=== PATIENT | female | born 1960 | race Caucasian/White ===

== ENCOUNTER 2021-01-05 09:05 | Outpatient (REF) | payer OTHER, SELFPAY ==
--- NOTE | ~2021-01-05 | XR_ITS ---
EXAMINATION: XR KNEE, BILATERAL CLINICAL INFORMATION: Left knee pain. COMPARISON: 09/19/2014 TECHNIQUE: Standing AP views of both knees and lateral and sunrise views of the left knee. FINDINGS: AP standing views of both knees do not demonstrate any significant bony abnormality. Joint spaces are maintained. Lateral and sunrise views of the left knee demonstrate minimal spurring undersurface of the patella, however, there is also a region of diminished density about the patella in the region of the patellofemoral joint, and donor site for loose body cannot be ruled out. No definite bony loose body is appreciated. No significant left knee effusion is appreciated. XR/XR knee LT 2V IMPRESSION: No acute fracture or significant degenerative change about the left knee. Region of diminished density about the undersurface of the left patella which could possibly represent a donor site for loose body. No definite loose body is appreciated. No significant abnormality of the right knee on AP view. Joint space narrowing identified.
--- NOTE | ~2021-01-05 | XR_ITS ---
EXAMINATION: XR KNEE, BILATERAL CLINICAL INFORMATION: Left knee pain. COMPARISON: 09/19/2014 TECHNIQUE: Standing AP views of both knees and lateral and sunrise views of the left knee. FINDINGS: AP standing views of both knees do not demonstrate any significant bony abnormality. Joint spaces are maintained. Lateral and sunrise views of the left knee demonstrate minimal spurring undersurface of the patella, however, there is also a region of diminished density about the patella in the region of the patellofemoral joint, and donor site for loose body cannot be ruled out. No definite bony loose body is appreciated. No significant left knee effusion is appreciated. XR/XR knee standing BI IMPRESSION: No acute fracture or significant degenerative change about the left knee. Region of diminished density about the undersurface of the left patella which could possibly represent a donor site for loose body. No definite loose body is appreciated. No significant abnormality of the right knee on AP view. Joint space narrowing identified.
== END 2021-01-05 09:06 | disposition home or self-care (01) ==
LOC: HO.HOSX 09:05
PROVIDERS: Visit Provider Orthopaedic Surgery
DX: S83.242A Other tear of medial meniscus, current injury, left knee, initial encounter (principal)
CPT/HCPCS: 73560; 73565

== ENCOUNTER 2021-01-12 19:26 | Outpatient (REF) | payer OTHER, SELFPAY ==
--- NOTE | ~2021-01-12 | MR_ITS ---
EXAMINATION: MR KNEE WITHOUT CONTRAST, LEFT CLINICAL INFORMATION: Medial knee pain for approximately one year. COMPARISON: Left knee radiographs dated January 05, 2021. TECHNIQUE: MRI of the knee without contrast was performed using routine sequences on a high-field scanner. FINDINGS: MENISCI: Medial Meniscus: Obliquely oriented horizontal cleavage tear in the peripheral undersurface of the posterior body and posterior horn. Tearing in the posterior horn involves the and central third of the posterior horn. Lateral Meniscus: Intact LIGAMENTS: Cruciate: Intact Collateral: Intact EXTENSOR MECHANISM: Intact ARTICULAR CARTILAGE/BONE: Patellofemoral Compartment: Focal full-thickness cartilage loss in the median ridge articular cartilage (4:12), (2:6) measuring 0.3 x 0.3 cm (TV, CC) with underlying subchondral edema. Medial Compartment: Normal Lateral Compartment: Normal JOINT FLUID AND BURSAE: Small joint effusion. Small volume of fluid in the semimembranosus-medial gastrocnemius bursa. MR/MR knee LT wo con IMPRESSION: Left knee: 1. Obliquely oriented horizontal tear in the posterior body and posterior horn of the medial meniscus. 2. Intact cruciate and collateral ligaments. 3. Focal full-thickness cartilage loss in the median ridge with underlying subchondral edema measuring 0.3 x 0.3 cm 4. Small joint effusion. Small Cardona's cyst.
== END 2021-01-12 19:27 | disposition home or self-care (01) ==
LOC: HO.MRI 19:26
PROVIDERS: PCP Internal Medicine; Visit Provider Orthopaedic Surgery
DX: S83.242A Other tear of medial meniscus, current injury, left knee, initial encounter (principal); X58.XXXA Exposure to other specified factors, initial encounter; Y93.9 Activity, unspecified; Y92.9 Unspecified place or not applicable; Y99.9 Unspecified external cause status
CPT/HCPCS: 73721

== ENCOUNTER → 2021-01-19 10:14 | Outpatient (BNVA) | payer OTHER, SELFPAY | PROVIDERS: PCP Internal Medicine; Visit Provider Orthopaedic Surgery ==

== ENCOUNTER → 2021-01-31 08:21 | Outpatient (BNVA) | payer OTHER, SELFPAY | PROVIDERS: PCP Internal Medicine; Visit Provider Orthopaedic Surgery ==

== ENCOUNTER 2021-02-15 08:15 | Day surgery (SDC) | payer OTHER, SELFPAY ==
[2021-02-08 14:02] VITALS: BMI 23.3
--- NOTE | 2021-02-14 08:24 | HO.ANESPROP2 ---
Documented by User: Saskia Evelyn 02/14/21 08:24 HPI - Anesthesia Eval Consult details Narrative: 60yo F for Left Knee Arthroscopy PMFSH Active Problems Active Problems: All Active Problems (Updated 02/08/21 @ 14:00 by Rosa Maria Marcus) Tear of medial meniscus of left knee (Acute) Tear of medial meniscus of left knee (Acute) Past Medical History Medical History Arthritis Asthma COVID-19 vaccine administered Depression GERD (gastroesophageal reflux disease) Hx of bipolar disorder Hx of renal calculi TMJ click Surgical History Surgical History H/O colonoscopy History of carpal tunnel release Hx of cholecystectomy Hx of esophagogastroduodenoscopy Hx of lithotripsy Social History Social History Patient Tobacco Use Status: Never used Tobacco Use of substances other than those prescribed or required for medical reasons: No Are you DNR?: No Advance Directives: No Advance Directives Information Provided: Yes Current occupational status: employed 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 [employer] Allergies Allergy/AdvReac Type Severity Reaction Status Date / Time cefaclor [From [facility]] Allergy Intermediate NAUSEA & Verified 02/15/21 08:46 VOMITING Sulfa (Sulfonamide Allergy Intermediate RASH Verified 02/15/21 08:46 Antibiotics) [SULFA (SULFONAMIDE ANTIBIOTICS)] prochlorperazine Allergy Unknown Unknown Verified 02/15/21 08:46 [From Compazine] Home Medications Medication Instructions Recorded Confirmed Last Taken Type bupropion HCl 150 mg 24 hr tablet, 150 mg PO QAM 01/05/21 02/08/21 02/15/21 07:45 History extended release celecoxib 200 mg capsule 200 mg PO BID 01/05/21 02/08/21 Unknown History fluticasone propionate 50 1 inh INHALATION BID 01/05/21 02/08/21 02/15/21 07:45 History mcg/actuation blister powder for inhalation montelukast 10 mg tablet 10 mg PO DAILY 01/05/21 02/08/21 Unknown History oxcarbazepine 300 mg tablet 300 mg PO BID 01/05/21 02/08/21 Unknown History oxybutynin chloride 15 mg 15 mg PO DAILY 01/05/21 02/08/21 02/15/21 07:45 History tablet,extended release 24 hr pantoprazole 40 mg tablet,delayed 40 mg PO DAILY 01/05/21 02/08/21 02/15/21 07:45 History release pentosan polysulfate sodium 100 mg 100 mg PO TID 01/05/21 02/08/21 Unknown History capsule sertraline 50 mg tablet 50 mg PO DAILY 01/05/21 02/08/21 02/15/21 07:45 History tizanidine 2 mg capsule 2 mg PO BID PRN 01/05/21 02/08/21 Unknown History topiramate 15 mg sprinkle capsule 75 mg PO DAILY 01/05/21 02/08/21 Unknown History Exam Exam Date and Time: February 14, 2021 0824 Height,Weight and Vital Signs: Height 5 ft 5 in Weight 63.503 kg Assessment and Plan Assessment Anesthesia Assessment: Chart Reviewed Documented by User: Azeem Miranda MD 02/15/21 09:47 PMFSH Past Medical History Medical History Arthritis Asthma COVID-19 vaccine administered Depression GERD (gastroesophageal reflux disease) Hx of bipolar disorder Hx of renal calculi TMJ click Surgical History Surgical History H/O colonoscopy History of carpal tunnel release Hx of cholecystectomy Hx of esophagogastroduodenoscopy Hx of lithotripsy Social History Social History Patient Tobacco Use Status: Never used Tobacco Use of substances other than those prescribed or required for medical reasons: No Are you DNR?: No Advance Directives: No Advance Directives Information Provided: Yes Current occupational status: employed 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 [employer] Allergies Allergy/AdvReac Type Severity Reaction Status Date / Time cefaclor [From [facility]] Allergy Intermediate NAUSEA & Verified 02/15/21 08:46 VOMITING Sulfa (Sulfonamide Allergy Intermediate RASH Verified 02/15/21 08:46 Antibiotics) [SULFA (SULFONAMIDE ANTIBIOTICS)] prochlorperazine Allergy Unknown Unknown Verified 02/15/21 08:46 [From Compazine] Home Medications Medication Instructions Recorded Confirmed Last Taken Type bupropion HCl 150 mg 24 hr tablet, 150 mg PO QAM 01/05/21 02/08/21 02/15/21 07:45 History extended release celecoxib 200 mg capsule 200 mg PO BID 01/05/21 02/08/21 Unknown History fluticasone propionate 50 1 inh INHALATION BID 01/05/21 02/08/21 02/15/21 07:45 History mcg/actuation blister powder for inhalation montelukast 10 mg tablet 10 mg PO DAILY 01/05/21 02/08/21 Unknown History oxcarbazepine 300 mg tablet 300 mg PO BID 01/05/21 02/08/21 Unknown History oxybutynin chloride 15 mg 15 mg PO DAILY 01/05/21 02/08/21 02/15/21 07:45 History tablet,extended release 24 hr pantoprazole 40 mg tablet,delayed 40 mg PO DAILY 01/05/21 02/08/21 02/15/21 07:45 History release pentosan polysulfate sodium 100 mg 100 mg PO TID 01/05/21 02/08/21 Unknown History capsule sertraline 50 mg tablet 50 mg PO DAILY 01/05/21 02/08/21 02/15/21 07:45 History tizanidine 2 mg capsule 2 mg PO BID PRN 01/05/21 02/08/21 Unknown History topiramate 15 mg sprinkle capsule 75 mg PO DAILY 01/05/21 02/08/21 Unknown History Exam Airway Mallampati Class: III TM Dist: >3cm Neck ROM: Full Loose/Missing/Broken Teeth: No Assessment and Plan Assessment Anesthesia Assessment: Anesthesia Plan Discussed and Chart Reviewed Final Anesthetic Review NPO: Yes ASA Class: II Final Preanesthetic Review: No Changes in Pt Med Stat, Meds/Allgs Chart Reviewed, Consent Obtained/Reviewed and Anes Risks/Benef Reviewed Patient Risk: Low Procedure Risk: Low Anesthetic Plan Anesthetic Plan: GA Disposition: Standard PACU
[2021-02-15] VITALS (18 sets, daily range): BP systolic 117–154; BP diastolic 69–84; PULSE 66–80; RESP 16–18; TEMP 36.5–37; O2SAT 16–100; BMI 23.6; BMI 25.0
--- NOTE | ~2021-02-15 | XR_ITS ---
EXAMINATION: XR CHEST CLINICAL INFORMATION: Oxygen requirement COMPARISON: Chest radiographs 09/04/2018, 09/06/2014 TECHNIQUE: Portable upright AP view of the chest was obtained. FINDINGS: There is subtle fine bilateral peribronchial and perivascular cuffing upper and lower zones which may suggest early interstitial edema. There may be fine groundglass opacities. There is no lobar or segmental airspace consolidation or effusion. The heart is normal in size. The hilar and mediastinal contours are normal. There is dextrocurvature lower thoracic spine. Surgical clips again noted upper quadrant right abdomen. XR/XR chest 1V IMPRESSION: Fine peribronchial perivascular cuffing upper and lower zones which may suggest early interstitial edema. Suspect subtle underlying groundglass opacities. No effusion.
--- NOTE | ~2021-02-15 | XR_ITS ---
EXAMINATION: XR CHEST CLINICAL INFORMATION: Interstitial edema on previous x-ray COMPARISON: Chest 02/15/2021 TECHNIQUE: 2 views of the chest were obtained. FINDINGS: The lungs are well-expanded without acute consolidation or pleural effusion. Peribronchial findings position markings are again visualized. There is some patchy density seen in the left parahilar region upper lobe slightly more prominent in the previous exam question developing infiltrates. There is mild thickening of right minor fissure. The heart size and pulmonary vascularity is normal. No gross bony abnormality seen. XR/XR chest 2V IMPRESSION: Prominent bilateral perihilar interstitial markings with new developing patchy opacities and left suprahilar and perihilar regions of upper lobe question developing infiltrate.? COVID infection.
--- NOTE | 2021-02-15 07:41 | MHC.SHP ---
Pre-Procedural Eval Section A Date of Service: 02/15/21 The patient is an INPATIENT: No Changes since office visit: No Cold of Flu in the past 2 weeks, No New Medical Problems, No Changes in Medication and No Patient answered all questions The History & Physical has been completed within 30 days and I have reviewed it.: Yes Section B Chief Complaint: tear of medial meniscus Allergies: Allergies Allergy/AdvReac Type Severity Reaction Status Date / Time cefaclor [From [facility]] Allergy Intermediate NAUSEA & Unverified 02/08/21 13:52 VOMITING Sulfa (Sulfonamide Allergy Intermediate RASH Unverified 02/08/21 13:52 Antibiotics) [SULFA (SULFONAMIDE ANTIBIOTICS)] prochlorperazine Allergy Unknown Unknown Verified 02/08/21 13:52 [From Compazine] Plan I have reviewed the history and physical and performed a pertinent physical examination on my patient. No changes have occurred unless specified.
[2021-02-15] MEDS: Lactated Ringers 1,000 ML 100 ML IVCONT ×2 (09:00→20:00)
[2021-02-15] MEDS: HYDROmorphone HCl 0.5 MG/0.5 ML SYRINGE 0.25 MG IVPUSH ×3 (10:19→11:18)
[2021-02-15] MEDS: oxyCODONE HCl Immed Release 5 MG TABLET PO (10:20)
[2021-02-15] MEDS: Albuterol Sulfate (0.083%) 2.5 MG/3 ML VIAL.NEB INHALE (11:00)
[2021-02-15] MEDS: Furosemide 20 MG/2 ML VIAL 10 MG IVPUSH (13:21)
[2021-02-15] MEDS: Ketorolac Tromethamine 15 MG/ML VIAL IVPUSH (14:34)
[2021-02-16] VITALS: BP 131/73; PULSE 73; RESP 16; TEMP 36.3; O2SAT 97
[2021-02-16 03:37] VITALS: BP 141/86; PULSE 73; RESP 16; TEMP 36.2; O2SAT 99
[2021-02-16] MEDS: Lactated Ringers 1,000 ML 100 ML IVCONT (05:16)
[2021-02-16 07:23] VITALS: BP 153/81; PULSE 77; RESP 20; TEMP 36.6; O2SAT 96
--- NOTE | 2021-02-16 09:20 | PM.IMCN ---
Assessment and Plan (1) Hypoxia: Status: Acute This is a 60 yo F with a PMH of GERD, asthma, depression who is admitted after elective orthopedic surgery for post-op hypoxia. Her post-op cxr showed some early interstitial edema, suspected from IVF during surgery. Her hypoxia appears to be resolved -- 95 at rest and 93 with ambluation to the hallway. Will repeat a CXR now to ensure improvement in her interstitial edema, if this persists -- she may need a dose of IV lasix. Will abmulate her in the hallway (if okay with ortho) to ensure no hypoxia upon exertion. If CXR clear and no hypoxia on ambulation, she may be discharged from a medical perspective. History of Present Illness Data of Consult Service Date: 02/16/21 Requesting physician: Toby Estrada Primary Care Provider: Pablito Krause MD HPI Reason for consult: Hypoxia post op This is a 60-year-old female with a past medical history of GERD, asthma, depression / anxiety who is admitted under the orthopedic surgery post-op after she was noted to be hypoxic. Medical consultation is sought for this reason. Patient is seen and examined this AM in her room. She reports feeling fine. She has been using her incentive spirometry. Her hypoxia seems to be resolved, saturations have been 93+ on RA, even with ambulation per RN reports Patient herself denies any sob, cough, chest pain. No fevers or chills. Review of Systems Review of Systems: General - denies fevers or chills, denies weakness or fatigue HEENT -denies blurred vision, denies headache, denies sore throat Cardiovascular - denies chest pain or palpitations, denies edema Respiratory - denies shortness of breath, coughing, wheezing Gastrointestinal - denies abdominal pain, nausea, vomiting, diarrhea - denies flank pain, denies dysuria, denies frequency or urgency Musculoskeletal - denies back pain, denies hip pain, denies knee pain, denies shoulder pain Neurological - denies any focal weakness or numbness Skin, denies any bruising or redness Psychiatric - denies any suicidal ideation, hallucinations, homicidal ideation Endocrinology - denies intolerance to hot / cold temperatures [facility] Medical History Arthritis Asthma COVID-19 vaccine administered Depression GERD (gastroesophageal reflux disease) Hx of bipolar disorder Hx of renal calculi TMJ click Surgical History H/O colonoscopy History of carpal tunnel release Hx of cholecystectomy Hx of esophagogastroduodenoscopy Hx of lithotripsy Social History Household Members: Spouse Housing: House Do you presently have visiting nurse or other home services: No Patient Tobacco Use Status: Never used Tobacco Use of substances other than those prescribed or required for medical reasons: No Currently Displaying Signs/Symptoms of Drug Intoxication Withdrawal: No Have you been hit, kicked, punched, or otherwise hurt by someone within the past year? 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 [employer] Allergies Allergy/AdvReac Type Severity Reaction Status Date / Time cefaclor [From [facility]] Allergy Intermediate NAUSEA & Verified 02/15/21 08:46 VOMITING Sulfa (Sulfonamide Allergy Intermediate RASH Verified 02/15/21 08:46 Antibiotics) [SULFA (SULFONAMIDE ANTIBIOTICS)] prochlorperazine Allergy Unknown Unknown Verified 02/15/21 08:46 [From Compazine] Active Medications: Current Medications Generic Name Dose Route Start Last Admin Trade Name Freq PRN Reason Stop Dose Admin Acetaminophen/Codeine Phosphate 1 tab 02/15/21 19:05 02/16/21 01:27 Acetaminophen With Codeine # 3 Tablet PO 1 tab Q4H PRN Administration Pain, Moderate (Pain Scale 4-6 Albuterol Sulfate 2.5 mg 02/15/21 08:20 02/15/21 11:00 Albuterol Sulfate (0.083%) 2.5 Mg/3 Ml Vial.Neb INHALE 2.5 mg ONCE PRN Administration Shortness of Breath/Wheezing Albuterol Sulfate 2.5 mg 02/15/21 10:36 Albuterol Sulfate (0.083%) 2.5 Mg/3 Ml Vial.Neb INHALE ONCE PRN Wheezing Lactated Ringer's 1,000 mls @ 100 mls/hr 02/15/21 08:30 02/16/21 05:16 Lr IVCONT 100 mls/hr .Q10H SIMONE Administration Home Medications Medication Instructions Recorded Confirmed Last Taken Type bupropion HCl 150 mg 24 hr tablet, 150 mg PO QAM 01/05/21 02/08/21 02/15/21 07:45 History extended release celecoxib 200 mg capsule 200 mg PO BID 01/05/21 02/08/21 Unknown History fluticasone propionate 50 1 inh INHALATION BID 01/05/21 02/08/21 02/15/21 07:45 History mcg/actuation blister powder for inhalation montelukast 10 mg tablet 10 mg PO DAILY 01/05/21 02/08/21 Unknown History oxcarbazepine 300 mg tablet 300 mg PO BID 01/05/21 02/08/21 Unknown History oxybutynin chloride 15 mg 15 mg PO DAILY 01/05/21 02/08/21 02/15/21 07:45 History tablet,extended release 24 hr pantoprazole 40 mg tablet,delayed 40 mg PO DAILY 01/05/21 02/08/21 02/15/21 07:45 History release pentosan polysulfate sodium 100 mg 100 mg PO TID 01/05/21 02/08/21 Unknown History capsule sertraline 50 mg tablet 50 mg PO DAILY 01/05/21 02/08/21 02/15/21 07:45 History tizanidine 2 mg capsule 2 mg PO BID PRN 01/05/21 02/08/21 Unknown History topiramate 15 mg sprinkle capsule 75 mg PO DAILY 01/05/21 02/08/21 Unknown History Physical Exam Vital Signs and Narrative: Vital Signs: Last Vital Signs Temp 97.8 F 02/16/21 07:23 Pulse 77 02/16/21 07:23 Resp 20 02/16/21 07:23 BP 153/81 H 02/16/21 07:23 Pulse Ox 96 02/16/21 07:23 Oxygen Flow Rate 1.5 02/15/21 22:20 Body Mass Index 25.0 Const: Other: Constitutional - Awake and Alert, No apparent distress Eyes - PERRLA, EOMI Cardiovascular - S1S2, RRR, No edema Respiratory - Normal lung expansion, Normal respiratory effort, No respiratory distress, CTA bilaterally Gastrointestinal - NT / ND; +BS; No rebound or guarding - No CVA tenderness Extremities - no calf tenderness bilaterally, no swelling Musculoskeletal - Normal inspection, normal ROM Skin - Warm/Dry Neurological - Alert & oriented x3, No focal deficit Psychological - Appropriate affect Results Imaging Radiologist's Impressions: Impressions Chest X-Ray 02/15/21 11:56 IMPRESSION: Fine peribronchial perivascular cuffing upper and lower zones which may suggest early interstitial edema. Suspect subtle underlying groundglass opacities. No effusion.
--- NOTE | 2021-02-16 09:46 | MHC.CM.PN ---
nurse personal care assistant note electronic medical record reviewed along with case discussed with staff nurse and orthopedic surgical p,a,. 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 came in for elective tear of medial meniscus and kept over night . patient has mental health counseling psychiatrist and therapist through dance therapist discharge plan home no services transp family pcp dr ernestina cardona patient to call for post hospital discharge follow up, orthopedic surgical follow up per discharge instructions
[2021-02-16 09:47] VITALS: O2SAT 96
[2021-02-16] MEDS: Furosemide 20 MG/2 ML VIAL IVPUSH (11:02)
[2021-02-16 11:25] VITALS: BP 151/75; PULSE 69; RESP 20; TEMP 36.7; O2SAT 97
--- NOTE | 2021-02-16 11:42 | PC.NURSE ---
Ambulated with pt in ramires approximately 200feet. O2 sat on room air 93-96% Denied sob or difficulty breathing
[2021-02-16 12:19] LABS: Influenza A PCR NEGATIVE (Negative); Influenza B PCR NEGATIVE (Negative); Resp Syncy Virus RNA Qual PCR NEGATIVE (Negative); SARS COV2 PCR INHOUSE NEGATIVE (Negative)
--- NOTE | 2021-02-16 12:48 | P.DS_ITS ---
DS: Providers Provider Date of Service: 02/16/21 Primary care physician: Pablito Krause MD Consults: 02/15/21 17:36 Consult to Internal Medicine Routine Consulting Provider: Hospitalist Reason for consultation: Low O2 post op DS: Diagnosis Discharge Diagnosis (1) Hypoxia: Status: Acute DS: Medications Discharge Medications Home Medications: Home Medications Medication Instructions Recorded Confirmed bupropion HCl 150 mg 24 hr tablet, 150 mg PO QAM 01/05/21 02/08/21 extended release fluticasone propionate 50 1 inh INHALATION BID 01/05/21 02/08/21 mcg/actuation blister powder for inhalation montelukast 10 mg tablet 10 mg PO BEDTIME 01/05/21 02/16/21 oxcarbazepine 300 mg tablet 600 mg PO BEDTIME 01/05/21 02/16/21 oxybutynin chloride 15 mg 15 mg PO DAILY 01/05/21 02/08/21 tablet,extended release 24 hr pantoprazole 40 mg tablet,delayed 40 mg PO DAILY 01/05/21 02/08/21 release pentosan polysulfate sodium 100 mg 200 mg PO BID 01/05/21 02/16/21 capsule topiramate 15 mg sprinkle capsule 15 mg PO DAILY 01/05/21 02/16/21 betamethasone dipropionate 1 appl TOPICAL BID PRN 02/16/21 02/16/21 celecoxib 100 mg PO BID 02/16/21 02/16/21 sertraline 1 tab PO DAILY 02/16/21 02/16/21 tizanidine 1 tab PO Q6H PRN 02/16/21 02/16/21 Previous Rx's Medication Instructions Recorded acetaminophen-codeine 1 tab PO Q4-6H PRN 7 Days #20 tab 02/15/21 DS: Summary Hospital Course Hospital Course: Ms. Esparza is a 60 yo female who consented to undergo left knee arthroscopy with Dr Estrada which was successful. She was transferred to PACU and upon recovery she was unable to maintain an O2 SAT above 90 without supplementation; therefore, she was admitted for observation. While under observation CXR did show some consolidations, negative for PNA and COVID -19. During her stay her oxygen saturation normalized , she walked without desating and she was cleared for discharge home. Time Spent with Patient Time attestation: Total time spent providing and/or coordinating discharge services: Discharge coordination time: Less than 30 minutes Quality: Stroke Does the patient have a stroke diagnosis?: No Physical Exam Vital Signs: Vital Signs: Last Vital Signs Temp 98.0 F 02/16/21 11:25 Pulse 69 02/16/21 11:25 Resp 20 02/16/21 11:25 BP 151/75 H 02/16/21 11:25 Pulse Ox 97 02/16/21 11:25 Oxygen Flow Rate 1.5 02/15/21 22:20 Body Mass Index 25.0 DS: Data Data Completed and Pending Labs on day of discharge: Laboratory Results - last 24 hr 02/16/21 11:01 Coronavirus (PCR) NEGATIVE SARS-CoV-2 (PCR) Cancelled Influenza Type A (PCR) NEGATIVE Influenza Type B (PCR) NEGATIVE RSV RNA Qual (PCR) NEGATIVE Discharge Plan Discharge Patient Disposition: Home, Self-Care Referrals: Evie Mcrae PA-C [Physician Information Support Project Manager] - 1 Week (02/27/21 08:30 [facility] Evie Mcrae PA-C) Pablito Krause MD [Primary Care Provider] - 1 Week (repeart CXR) Discharge Medications: New acetaminophen-codeine 300-30 mg tablet 1 tab PO Q4-6H PRN (Reason: pain) 7 Days Qty: 20 RF: 0 Continued tizanidine 4 mg tablet 1 tab PO Q6H PRN (Reason: Muscle Pain) RF: 0 sertraline 100 mg tablet 1 tab PO DAILY RF: 0 betamethasone dipropionate 0.05 % cream 1 appl topical BID PRN (Reason: eczema) RF: 0 celecoxib 100 mg Capsule 100 mg PO BID RF: 0 Discharge Orders: Discharge Order (Routine); Ordered 02/16/21 Ordered By: Toby Estrada Activity Restrictions/Additional Instructions: * full weight-bearing as tolerated * return to activities as tolerated * Discharge today with prescription for analgesics * follow up the office in 10-12 days time Discharge Date/Time: 02/16/21 14:22
--- NOTE | 2021-02-19 11:22 | P.OP_ITS ---
Operative Note Operative Note Date of Service: 02/15/21 Narrative: ARTHROSCOPIC SURGERY NOTE SURGEON: Dr Luis (Vibha) Instrum SWEATER DESIGNER: None PREOP DIAGNOSIS: Medial meniscal tear left knee POSTOP DIAGNOSIS: Same with lateral meniscal tear left knee OPERATIVE PROCEDURE: Arthroscopic partial medial meniscectomy left knee. Arthroscopic partial lateral meniscectomy left knee CLINICAL NOTE: This lady is at ongoing problems with pain involving her left knee. Failing non operative management and subsequent investigations demonstr ated a left medial meniscal tear. Therefore after explaining the risks, benefits, alternatives of the surgery and answering all her questions. It was mutually agreed upon to carry following procedure MOTION: Full range of motion STABILITY: Cruciate and collateral ligaments intact OPERATIVE DETAILS PREPARATION: GA, STANDARD TECHNIQUE, tourniquet E to 300 mm of mercury for 12 minutes SURGICAL TIME-OUT: Patient identified; procedure confirmed; site confirmed. Medical and allergy history reviewed. No preoperative antibiotics. No DVT prophylaxis. All other items discussed and agreed upon. INCISIONS: Superolateral, inferolateral, inferomedial stab incisions SYNOVIUM: Normal SYNOVIAL FLUID: Clear MEDIAL COMPARTMENT: The medial meniscus had a radial tear that was tucked underneath the posterior horn of the meniscus. This was on tucked. Resected and then the remaining meniscus contoured to stable. The tibial and femoral articular surfaces were intact. INTERCONDYLAR NOTCH: Intercondylar notch demonstrated ACL visualized palpated and intact. PCL palpated intact LATERAL COMPARTMENT: There was inner edge degenerative fraying with a slight undersurface tear as well. This entail the middle to posterior horn. This was resected using a combination of handheld cutters and power shaver to stable meniscus. The tibial and femoral articular surfaces and popliteus tendon were intact. ANTERIOR COMPARTMENT: The medial lateral gutters were clear suprapatellar pouch clear there was some grade 2 to small area of grade 3 injury of the medial facet of the patella. There was some grade 2 with small area grade 3 injury of the femoral sulcus. CLOSURE: 30 cc of 0.25% Marcaine with epinephrine injected in the knee. Steri- Strips and sterile dressing then applied. RECOMMENDATIONS: 1)Restore motion strength 2)Resume activities as tolerated 3)Discharge today with prescription for analgesic 4)Follow up in the office in 10-14 days is
== END 2021-02-16 14:22 | disposition home or self-care (01) ==
LOC: HO.SSS 09:57 → HO.S3 18:46
PROVIDERS: Family Medicine; PCP Internal Medicine; Visit Provider Orthopaedic Surgery
PROC: (CPT 29870; principal; 2021-02-15 10:00)
DX: S83.242A Other tear of medial meniscus, current injury, left knee, initial encounter (principal); S83.282A Other tear of lateral meniscus, current injury, left knee, initial encounter; X58.XXXA Exposure to other specified factors, initial encounter; Y93.9 Activity, unspecified; Y92.9 Unspecified place or not applicable; Y99.8 Other external cause status; J95.89 Other postprocedural complications and disorders of respiratory system, not elsewhere classified; R09.02 Hypoxemia; Y83.9 Surgical procedure, unspecified as the cause of abnormal reaction of the patient, or of later complication, without mention of misadventure at the time of the procedure; J45.909 Unspecified asthma, uncomplicated; K21.9 Gastro-esophageal reflux disease without esophagitis; F32.9 Major depressive disorder, single episode, unspecified; Z79.51 Long term (current) use of inhaled steroids; Z79.899 Other long term (current) drug therapy; Z88.2 Allergy status to sulfonamides; Z88.8 Allergy status to other drugs, medicaments and biological substances
CPT/HCPCS: 29880; 0241U; 36415; 71045; 71046; 94640; J0131; J1100; J1170; J1885; J1940; J2250; J2405; J3010; U0003; U0005

== ENCOUNTER → 2021-02-28 08:40 | Outpatient (BNVA) | payer OTHER, SELFPAY | PROVIDERS: Visit Provider Orthopaedic Surgery ==

== ENCOUNTER 2021-06-13 11:09 | Outpatient (REF) | payer OTHER, SELFPAY ==
--- NOTE | ~2021-06-13 | XR_ITS ---
EXAMINATION: XR CHEST CLINICAL INFORMATION: Interstitial lung disease COMPARISON: Chest radiographs from 09/04/2018 and 02/16/2021 TECHNIQUE: 2 views of the chest were obtained. FINDINGS: Lungs are well-inflated and clear. Trachea is midline in position. No interstitial disease, consolidation or mass. No pulmonary edema, pleural effusion or pneumothorax. Cardiac silhouette and pulmonary vessels are normal in size. The mediastinum and yimi have normal contour. Mild dextrocurvature of the lower thoracic and upper lumbar spine. No suspicious bone lesion. Cholecystectomy clips are present in the right upper abdomen. XR/XR chest 2V IMPRESSION: The interstitial opacities observed on 02/16/2021 have resolved. Lungs have a normal appearance on this follow-up examination.
== END 2021-06-13 11:10 | disposition home or self-care (01) ==
LOC: HO.XRAY 11:09
PROVIDERS: PCP Internal Medicine; Visit Provider Internal Medicine
DX: J84.9 Interstitial pulmonary disease, unspecified (principal)
CPT/HCPCS: 71046

== ENCOUNTER 2021-08-01 09:46 | Emergency (ER) | payer OTHER, SELFPAY ==
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
[2021-08-01 10:09] VITALS: BP 138/79; PULSE 61; RESP 18; TEMP 36.1; O2SAT 99; BMI 23.3
[2021-08-01] MEDS: Ibuprofen 600 MG TABLET PO (11:41)
== END 2021-08-01 13:42 | disposition home or self-care (01) ==
PROVIDERS: Emergency Provider Emergency Medicine; PCP Internal Medicine
DX: S39.012A Strain of muscle, fascia and tendon of lower back, initial encounter (principal); V43.52XA Car driver injured in collision with other type car in traffic accident, initial encounter; Y93.9 Activity, unspecified; Y92.410 Unspecified street and highway as the place of occurrence of the external cause; Y99.9 Unspecified external cause status
CPT/HCPCS: 72040; 72100; 99283

== ENCOUNTER → 2024-12-13 08:59 | Outpatient (REF) | payer OTHER, SELFPAY ==
--- NOTE | 2024-12-13 09:04 | CA_ITS ---
Transthoracic Echocardiogram Patient (Last, First, Middle): Tianna Lyons, Gender: Female Date of : 1960 Age: 64 Procedure Date: 12/13/2024 Procedure Type: Transthoracic Echocardiogram Location: OP Height: 165.1 cm Weight: 68.95 kg BSA: 1.76 m2 Heart Rate: bpm BP: 124 / 70 mmHg Director Community Organization: Referring MD: Bryanna Blanco MD Symptoms: CAD, possible SILENT RI Study Quality: Good ECG Rhythm: Sinus Conclusions: - The left ventricular systolic function is normal. The calculated ejection fraction is 59% by biplane method. - No obvious valvular pathology seen on this study. Findings Left Ventricle Normal left ventricular cavity size. There is normal left ventricular wall thickness. The left ventricular systolic function is normal. The calculated ejection fraction is 59% by biplane method. There is no evidence of regional wall motion abnormalities. Diastolic function is normal for age. Right Ventricle Normal right ventricular cavity size and systolic function. Atria Both atria are normal in size. Aortic Valve There is a normal trileaflet aortic valve. There is no aortic valve stenosis. Trace to mild aortic regurgitation. Mitral Valve There is mild mitral annular calcification. There is trace mitral valve regurgitation. There is no mitral valve stenosis. Pulmonic Valve The pulmonic valve is likely normal. Tricuspid Valve There is trace tricuspid valve regurgitation. There is no evidence of pulmonary hypertension. Great Vessels The asc aorta is normal in size. Venous The inferior vena cava is normal in size and collapses greater than 50% with inspiration. Pericardium/Pleural There is no evidence of pericardial effusion. Prior Study Comparison No significant change compared to prior study dated: 09/04/2018. Recommendations, Care & Conclusions No obvious valvular pathology seen on this study. Measurements 2D Linear Measurements IVSd: 1.00 0.6-0.9/0.6-1.0 cm LVIDd: 4.19 3.9-5.3/4.2-5.9 cm LVIDd Index: 2.38 2.4-3.2/2.2-3.1 cm/m2 LVIDs: 2.35 2.0-3.6 cm LVPWd: 1.06 0.7-1.1 cm Ao Root: 3.10 2.1-3.5 cm LA Diam: 2.90 2.7-3.8/3.0-4.0 cm LAIDs Index: 1.65 1.5-2.3 cm/m2 LV Mass: 177.28 67-162/88-224 g LV Mass Index: 100.73 43-95/49-115 g/m2 LVOT Diam: 2.00 3.0+(-)1.3 cm 2D Systolic Function EF 4C: 60.20 >55% EF 2C: 56.80 >55% EF BiP: 59.20 >55% Mitral Valve MV VTI: 0.33 MV Pk Juan: 1.05 MV Mn Juan: 0.62 MV Pk Grad: 4.00 MV Mn Grad: 2.00 MV Pk E: 0.80 MV PK A: 0.99 MV Decel Time: 183.00 E/A: 0.80 E'Lateral: 8.59 E'Medial: 5.33 E/E' Med: 15.00 E/E' Lat: 9.30 PHT: 54.00 MVA PHT: 4.07 Decel [place]: 4.35 Aortic Valve AoV Pk Juan: 1.58 AoV Mn Juan: 1.06 AoV VTI: 0.40 AoV Pk Grad: 10.00 Aov Mn Grad: 5.00 LVOT LVOT Diam: 2.00 LVOT Area: 3.14 Diastolic Function MV Pk E: 0.80 MV Pk A: 0.99 E/A: 0.80 E'Medial: 5.33 E/E' Med: 15.00 E' Laterial: 8.59 E/E' Lat: 9.30 Right Ventricle TAPSE (mm): 25.00 TVS' Juan: 12.00 Tricuspid Valve TR Pk Juan: 2.36 TR Pk Grad: 22.00 RA Press: 3.00 RVSP: 25.00 Great Vessels Aorta Ao Root-2D: 3.10 2.0-3.7 cm Ao Asc: 3.40 2.1-3.4 cm Pulmonary Valve PV Pk Juan: 0.77 Peak PV Grad: 2.00 Updated in Other Vendor System with Status of Final Mario Razo MD electronically signed on 12/13/2024 10:36:03 AM with status of Final
--- OUTSIDE RECORDS SUMMARY | 2024-12-13 09:11 | XMS_ITS | Clinical Summary ---
Author Organization [facility] Address [address] [address] Phone Care Team Providers Care Business Applications Manager Name Role Phone Pablito Krause MD Primary Care Provider [phone] Social History Tobacco Use Types Packs/Day Years Used Date Smoking Tobacco: Never Assessed Comments Unknown Sex and Gender Information Value Date Recorded Sex Assigned at Not on file Legal Sex Female 2:29 PM EDT Gender Identity Not on file Sexual Orientation Not on file Plan of Treatment Upcoming Encounters Date Type Department Care Team (Late st Contact Info) Description 01/19/2025 8:20 AM EDT Office Visit [facility]. [address] [id number] Mj Lopez MD [address] [address] Health Maintenance Due Date Last Done Comments Breast Cancer Screening 1960 Pneumococcal Vaccine: 50+ Years (1 of 2 - PCV) 1980 Colorectal Cancer Screening: Annual FOBT 2010 Colorectal Cancer Screening: Colonoscopy 2010 Colorectal Cancer Screening: Sigmoidoscopy 2010 Influenza Vaccine (Season Ended) 2025 04/21/2019, 03/16/2019 Hepatitis B Vaccine Aged Out No longe r eligible based on patient's age to complete this topic Insurance [facility] Teams Business Applications Manager Relationship Specialty Start Date End Date Pablito Krause MD [address] [place] [address], [address] [place], [place] PCP - General Internal Medicine 12/08/24
== END ==
LOC: HO.CARD 08:59
PROVIDERS: PCP Family Medicine; Visit Provider Family Medicine
DX: I25.10 Atherosclerotic heart disease of native coronary artery without angina pectoris (principal); I10 Essential (primary) hypertension
CPT/HCPCS: 93306

== ENCOUNTER → 2024-12-13 09:04 | Outpatient (BNV) | payer OTHER, SELFPAY | PROVIDERS: PCP Family Medicine; Visit Provider Internal Medicine | DX: I35.1 Nonrheumatic aortic (valve) insufficiency (principal); I34.81 Nonrheumatic mitral (valve) annulus calcification | CPT/HCPCS: 93306 ==

== ENCOUNTER 2025-03-22 09:05 | Outpatient (AMB) | payer OTHER, SELFPAY ==
--- NOTE | 2025-03-22 09:13 | A.OFFVIS_ITS ---
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 Timing Machine Operator Required: No Allergies cefaclor (From CECLOR) Allergy (Intermediate, Verified 02/28/21 08:46) NAUSEA & VOMITING Sulfa (Sulfonamide Antibiotics) (SULFA (SULFONAMIDE ANTIBIOTICS)) Allergy (Intermediate, Verified 02/28/21 08:46) RASH prochlorperazine (From Compazine) Allergy (Unknown, Verified 02/28/21 08:46) Unknown Medication List - Last Reconciled 03/22/25 by Mo Holley MD celecoxib 100 mg PO BID duloxetine 60 mg PO DAILY fluticasone furoate-vilanterol 100-25 mcg/dose (Breo Ellipta) 1 inh inhalation DAILY lisinopril 5 mg PO DAILY montelukast 10 mg PO BEDTIME oxcarbazepine 600 mg PO BEDTIME pantoprazole 40 mg PO DAILY sertraline 1 tab PO DAILY tizanidine 1 tab PO Q6H PRN tolterodine ER 2 mg PO DAILY topiramate 15 mg PO DAILY HPI Comments Details: Thank you for referring Tianna in cardiology consultation today for cardiovascular risk evaluation due to reported abnormal EKG. Patient is a pleasant 64-year-old female with prior history of asthma and anxiety. Recently treated for hypertension. In the past she said she was having elevated blood pressure reading but not treated but was started with lisinopril therapy in the beginning of summer and since then her blood pressures been doing well. She said in around [place] time she got severely short of breath and ended up going to [facility] where they did a bedside echo which was normal but she had abnormal EKG. They ruled out a myocardial infarction and sent her home. She was concerned about this abnormal echo. She had another echocardiogram in May for abnormal EKG at that time history of possible old myocardial infarction and that was normal with normal LV ejection fraction with no regional wall motion abnormality. She had mild aortic and mild mitral regurgitation. She is concerned overall about heart held due to her grandmother's history who suddenly with NM at age 62. She is concerned that she might have similar issues with atherosclerosis. I do not have a current lipid panel. However says since starting lisinopril therapy her symptoms have improved. She is not having significant symptoms of shortness of breath or palpitations. She denies any lightheadedness, syncope. No orthopnea, PND, leg edema. She says she has chronic shortness of breath related to her asthma. However there was no current worsening. [facility] Medical History (Updated 03/22/25 @ 09:55 by Mo Holley MD) HTN (hypertension) Hypoxia COVID-19 vaccine administered Hx of renal calculi Hx of bipolar disorder Depression Arthritis GERD (gastroesophageal reflux disease) Asthma TMJ click Surgical History Hx of esophagogastroduodenoscopy H/O colonoscopy Hx of lithotripsy History of carpal tunnel release Hx of cholecystectomy Social History Household Members: Spouse Housing: House Do you presently have visiting nurse or other home services: No Patient Tobacco Use Status: Never used Tobacco service: Yes Current occupational status: employed 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 [employer] Review of Systems Const Denies chills, Reports daytime sleepiness, Reports fatigue, Denies fever(s), Denies frequent falls, Denies poor appetite, Reports snoring, Denies stops breat sanjuana during sleep, Reports weakness, Reports weight gain and Denies weight loss Eyes Denies loss of vision ENT Denies dizziness and Denies hearing loss Card Reports chest pain, Denies claudication, Denies leg edema, Denies lightheadedness, Reports palpitations, Reports dyspnea, Reports dyspnea on exertion and Reports orthopnea Resp Reports cough, Reports excessive phlegm production, Reports dyspnea, Reports dyspnea on exertion, Reports snoring and Denies wheezing GI Denies abdominal pain, Denies hematochezia, Denies change in bowel habits, Denies nausea and Denies vomiting Denies urinary frequency and Denies dysuria Musc Denies arthralgias, Reports muscle weakness and Denies numbness Skin/Breast Denies nail changes and Denies rash Neuro Denies Abnormal speech present, Denies dizziness, Denies frequent falls, Denies loss of vision, Reports memory loss, Denies numbness and Reports weakness Psych Reports depression and Reports memory loss Endo Reports fatigue and Reports palpitations [place]/Lymph Reports easy bruising and Reports other (anemia) Aller/Immun Denies wheezing Physical Exam Vital Signs: Last Vital Signs Pulse 72 03/22/25 09:14 BP 120/80 03/22/25 09:14 BMI result Body Mass Index 25.7 Const General: cooperative, comfortable, no acute distress, well developed, alert and well groomed Nutritional Appearance: average body habitus and well nourished Orientation/consciousness: patient oriented x3 Limitations: no limitations HEENT Head: Yes normocephalic and Yes atraumatic Neck Neck: Yes trachea midline, Yes supple and Yes no JVD Resp Effort & Inspection: normal respiratory effort Auscultation: clear to auscultation bilaterally Cardio Jugular venous distension: no JVD Palpation: normal PMI Rate: regular rate Rhythm: regular rhythm Heart sounds: S1 normal heart sound present, S2 normal heart sound present, no click, no gallops and no murmurs GI Auscultation: normal bowel sounds Skin General skin exam: no rashes or lesions noted Neuro General: patient oriented x3 and no focal motor deficits Speech: No Abnormal speech present Extrem General: Yes no clubbing, cyanosis or edema Office Procedures EKG Details: EKG shows normal sinus rhythm with normal EKG [id number], Complete Assessment & Plan Assessment & Plan (1) HTN (hypertension): Code(s): I10 - Essential (primary) hypertension Category: Medical Plan: Hypertension with recently started lisinopril therapy with extremely well optimized blood pressure today and with much improved symptoms. She overall feels well. Does not have significant exertional shortness of breath chest pain. Does not have any significant palpitations. No heart failure symptoms. Good results with current low-dose lisinopril therapy was discussed. We discussed about lifestyle modification especially paying attention to low-salt diet and participate in more physical exercise once her right foot heals. She understands and agrees. Other partly until causes for elevated blood pressure especially use of nonsteroidals was discussed. She currently has no symptoms and had echocardiogram within last year which was within normal limits with no wall motion abnormality suggesting that EKGs was false-positive. Today's EKGs shows normal sinus rhythm with normal EKG. Given lack of symptoms I think provocative testing is not indicated. We discussed about reporting any new symptoms if she develops over the future. However I discussed about screening for coronary artery disease with coronary calcium score in guide treatment based on the findings. Will suggest a same. She is agreeable to pursue the same. Further treatment based on the findings. Given her mild valvular abnormalities repeating EKGs probably every 3 years can be considered. Will follow up in the clinic in 2 years time, sooner p.r.n.. Thank you for allowing me to partake in her care Coding Level of Care Code New Pt Level 4 (42075) Complex EM visit Add On G2211 Diagnoses HTN (hypertension) I10 CPT Codes EKG - CPT: 55465-[id number], Complete ([id number])
[2025-03-22 09:14] VITALS: BP 120/80; PULSE 72; BMI 25.7
--- OUTSIDE RECORDS SUMMARY | 2025-03-22 09:26 | XMS_ITS | Clinical Summary ---
Author Organization [facility] Address [address] [place] [address] Phone Care Team Providers Care Laboratory Mechanical Technician Name Role Phone Bryanna Blanco MD Primary Care Provider [phone] Allergies Active Allergy Reactions Criticality Noted Date Comments Sulfa Antibiotics Rash Low 01/19/2025 Medications albuterol HFA (ProAir HFA) 108 (90 Base) MCG/ACT inhaler 7 Active Ammonium Lactate (Lac-Hydrin Five) 5 % lotion Apply 1 application. topically 4 Active betamethasone dipropionate 0.05 % cream See Instructions, APPLY TO AFFECTED AREA TWICE A DAY as needed for eczema, # 60 Gm, 0 Refills, Maintenance, 09/21/24 12:07:00 PM EST, [id number], APPLY TO AFFECTED AREA TWICE A DAY as needed for eczema, 165, cm, 09/21/24 11:45:00 EST, Height, 63.6, kg, 01/09/24 10:13:00 EDT, Dry Weight 5 Active buPROPion XL (WELLBUTRIN XL) 150 MG 24 hr tablet Take 150 mg by mouth 9 Active celecoxib (CeleBREX) 200 MG capsule 7 Active DULoxetine (CYMBALTA) [address] capsule TAKE 1 CAPSULE BY MOUTH EVERY DAY TAKE WITH 60MG Active lisinopril 2.5 MG tablet Take 2.5 mg by mouth 1 (one) time each day in the evening 5 Active OXcarbazepine (TRILEPTAL) 300 MG tablet Take 600 mg by mouth every night Active montelukast (SINGULAIR) 10 MG tablet See Instructions, TAKE 1 TABLET BY MOUTH EVERY DAY IN THE EVENING, # 30 tablet, Refills 0, Tot. Refills 0, Maintenance, 10/13/24 1:41:00 PM EDT, Instructions Replace Required Details, Route to Pharmacy Electronically, [facility] #[id number], 165, cm, 09/21/24 11:45:00 EST, Height, 63.6, kg, 01/09/24 10:13:00 EDT, Dry Weight 7 Active LORazepam (ATIVAN) 1 MG tablet 7 Active oxybutynin XL (DITROPAN-XL) 15 MG 24 hr tablet 9 Active pantoprazole (PROTONIX) 40 MG EC tablet Take 40 mg by mouth 1 (one) time each day Active sertraline (ZOLOFT) 100 MG tablet Take 100 mg by mouth 1 (one) time each day Active tiZANidine (ZANAFLEX) 4 MG tablet Take 1 tablet by mouth 5 Active topiramate (TOPAMAX SPRINKLE) 15 MG capsule TAKE 2 CAPSULE BY ORAL ROUTE PER AT BEDTIME CANCEL PREV SCIPTS. 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/2025 Cyst of kidney 01/19/2025 Abnormal gait due to impairment of balance 01/18 Aneurysm of anterior communicating artery 2024 Anxiety 01/18/2025 Asthma 01/18/2025 Cervical radiculopathy 01/18/2025 Congenital posterolateral diaphragmatic hernia 0 01/18/2025 Degeneration of lumbar intervertebral disc 01/18 Diastolic dysfunction 01/18/2025 Diffuse spasm of esophagus 01/18/2025 Elevated blood-pressure read ing without diagnosis of hypertension 01/18/2025 Emphysema 01/18/2025 Nephrolithiasis 01/18/2025 Hypertensive disorder 01/18/2025 Vitamin D deficiency 01/18/2025 Chronic kidney disease, stage 2 (mild) Thrombocytopenia 01/18/2025 Resolved Problems Problem Noted Date Diagnosed Date Resolved Date Allergic rhinitis 01/18/2025 01/18/2025 Breast cancer screening 01/18/202512/27 Backache 01/18/2025 01/18/2025 Dyspnea on exertion 01/18/2025 01/19/20 Epidermoid cyst 01/18/2025 01/18/2025 Encounters Date Type Department Care Team Description 01/19/2025 8:20 AM EDT Office Visit [facility] [address] [place] [id number] Mj Lopez MD Nephrolithiasis (Primary Dx); Hypertensive disorder; Elevated blood-pressure reading without diagnosis of hypertension; Vitamin D deficiency, not otherwise specified; Chronic kidney disease, stage 2 (mild); Renal scarring; 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; Cyst of kidney 12/22/2024 Documentation Only [facility] [address] [address] Lizeth Uribe from Last 3 Months Immunizations Immunization Administration Dates Next Due Influenza Whole 04/21/2019,03/16/2019 MMR 04/09/2017 Moderna SARS-COV-2 06/01/2021,08/31/2020, 021 Shingrix 07/18/2020,04/21/2019 Td, Unspecified 03/01/2013 Tdap 03/04/2017 Family History Medical History Relation Comments Diabetes Father Heart disease Father Relation Status Comments Father Alive Mother Alive Social History Tobacco Use Types Packs/Day Years Used Date Smoking Tobacco: Never Tobacco Cessation:Counseling Given: Not Answered Alcohol Use Standard Drinks/Week Comments Not Currently 0 (1 standard drink = 0.6 oz pur e alcohol) Comments Unknown Sex and Gender Information Value Date Recorded Sex Assigned at Not on file Legal Sex Female 2:29 PM EDT Gender Identity Not on file Sexual Orientation Not on file Last Filed Vital Signs Vital Sign Reading Time Taken Comments Blood Pressure 120/85 01/19/2025 8:11 AM EDT Pulse 71 01/19/2025 8:11 AM EDT Temperature - - Respiratory Rate - - Oxygen Saturation 97% 01/19/2025 8:11 AM EDT Inhaled Oxygen Concentration - - Weight 68.9 kg (152 lb) 01/19/2025 8:11 AM EDT Height - - Body Mass Index - - Plan of Treatment Health Maintenance Due Date Last Done Comments Breast Cancer Screening 1961 Pneumococcal Vaccine: 50+ Years (1 of 2 - PCV) 1980 Colorectal Cancer Screening: Annual FOBT 2010 Colorectal Cancer Screening: Colonoscopy 2010 Colorectal Cancer Screening: Sigmoidoscopy 2010 Influenza Vaccine (#1) 2025 9, 03/16/2019 Hepatitis B Vaccine Aged Out No longe r eligible based on patient's age to complete this topic Insurance [facility] Care Teams Laboratory Mechanical Technician Relationship Specialty Start Date End Date Bryanna Blanco MD [address] [place] [address] PCP - General Family Medicine 01/19/25
== END 2025-03-22 09:20 | disposition home or self-care (01) ==
LOC: HO.HCS 09:05
PROVIDERS: PCP Family Medicine; Visit Provider Internal Medicine Cardiovascular Disease
DX: I10 Essential (primary) hypertension (principal)
CPT/HCPCS: 93010; 99204; G2211

== ENCOUNTER → 2025-03-22 09:05 | Outpatient (BNVA) | payer OTHER, SELFPAY | PROVIDERS: PCP Family Medicine; Visit Provider Internal Medicine Cardiovascular Disease | DX: I10 Essential (primary) hypertension (principal) | CPT/HCPCS: 93005 ==

== ENCOUNTER 2025-05-05 07:40 | Outpatient (REF) | payer OTHER, SELFPAY ==
[2025-05-05 08:32] LABS: Cholesterol 240 mg/dL (<200); HDL Cholesterol 66 mg/dL (>40); Triglycerides 92 mg/dL (<150)
== END 2025-05-05 07:41 | disposition home or self-care (01) ==
LOC: HO.LAB 07:40
PROVIDERS: PCP Family Medicine; Visit Provider Internal Medicine Cardiovascular Disease
DX: I10 Essential (primary) hypertension (principal); E78.5 Hyperlipidemia, unspecified
CPT/HCPCS: 36415; 80061; 86140

== ENCOUNTER 2025-07-14 09:30 | Outpatient (AMB) | payer OTHER, SELFPAY ==
--- NOTE | 2025-07-14 09:33 | A.OFFVIS_ITS ---
Vital Signs 07/14/25 09:44 Height 5 ft 5 in Weight 152 lb BMI 25.3 BP 136/78 Blood Pressure Location Rt brachial Position Sitting Pulse 74 Pulse Source Pulse Oximeter Pulse Oximetry (%) 99 Oxygen Delivery Method Room Air Intake Visit Reasons: Dysphagia Intake Note: New pt for eval of dysphagia. CC: C/O severe dysphagia, N+V. Pt states that she has previously been managed with [facility]; however, she was not able to get the urgent appt to see them soon enough, hence why she is here today. Pt reports recent BA FL w/ [facility] per her PCP's office. States that her PPI still treats her reflux well. Maintainer Plant Required: No Accompanied by: Self / Same As Patient Allergies cefaclor (From [facility]) Allergy (Intermediate, Verified 02/28/21 08:46) NAUSEA & VOMITING Sulfa (Sulfonamide Antibiotics) (SULFA (SULFONAMIDE ANTIBIOTICS)) Allergy (Intermediate, Verified 02/28/21 08:46) RASH Medication List - Last Reconciled 07/14/25 by Maylin Irwin CNP celecoxib 100 mg PO BID duloxetine 90 mg PO DAILY fluticasone furoate-vilanterol 100-25 mcg/dose (Breo Ellipta) 1 inh inhalation DAILY lisinopril 5 mg PO DAILY montelukast 10 mg PO BEDTIME oxcarbazepine 600 mg PO BEDTIME pantoprazole 40 mg PO DAILY rosuvastatin 20 mg PO BEDTIME sertraline 150 mg PO DAILY tizanidine 1 tab PO Q6H PRN tolterodine ER 2 mg PO DAILY topiramate 15 mg PO DAILY HPI HPI Dysphagia: Details: Patient is a 65-year-old female with PMH of depression, asthma, hypertension. Referred by PCP for further evaluation of dysphagia. She reports the symptoms started around a month before and are associated with a significant cough and choking, which she describes as her primary issue. The choking occurs with liquids and even her own saliva, sometimes waking her from sleep. She has also recently, within the last two weeks, experienced regurgitation of food. A speech evaluation on April 28 suggested pharyngeal dysphagia, and a barium swallow on May 26 revealed mild esophageal dysmotility and a cricopharyngeal bar, with no evidence of achalasia, mass, ulceration, or stricture. The patient's last upper endoscopy and colonoscopy were in 2010, with the colonoscopy being normal. The patient's past medical history is significant for gastroesophageal reflux disease, for which she takes pantoprazole, and reports acid reflux symptoms if she misses a dose. She has a diagnosis of COPD and uses a Breo Ellipta inhaler, though she has not seen her spin table operator in two years. She also has a history of interstitial cystitis treated with tolterodine, back pain treated with tizanidine, stress incontinence, a hiatal hernia noted on prior imaging. She use s oxcarbazepine prescribed by her psychiatrist for sleep. Patient denies: fever/chills, n/v, appetite changes, unintentional wt loss, ab pain or melena/hematochezia. Social hx: -ETOH use social drink -denies recreational drug use -non-smoker. Shares significant second hand exposure - family hx as below -denies personal hx of CA -tolerated anesthesia in the past without difficulty. PFSH Medical History (Updated 07/14/25 @ 10:38 by Maylin Irwin CNP) Colon cancer screening Chronic cough Dysphagia HTN (hypertension) Hypoxia COVID-19 vaccine administered Hx of renal calculi Hx of bipolar disorder Depression Arthritis GERD (gastroesophageal reflux disease) Asthma TMJ click Surgical History Hx of esophagogastroduodenoscopy H/O colonoscopy Hx of lithotripsy History of carpal tunnel release Hx of cholecystectomy Family History (Updated 07/14/25 @ 10:08 by Maylin Irwin CNP) Father Parkinson disease Diabetes Dementia Social History Household Members: Spouse Housing: House Do you presently have visiting nurse or other home services: No Patient Tobacco Use Status: Never used Tobacco service: Yes Current occupational status: employed 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 [employer] Review of Systems Const Reports as per HPI ENT Reports as per HPI Card Reports as per HPI Resp Reports as per HPI GI Reports as per HPI Reports as per HPI Physical Exam Vital Signs: Last Vital Signs Pulse 74 07/14/25 09:44 BP 136/78 07/14/25 09:44 Pulse Ox 99 07/14/25 09:44 Oxygen Delivery Method Room Air 07/14/25 09:44 BMI result Body Mass Index 25.3 Const General: healthy appearing, no acute distress and well developed Nutritional Appearance: average body habitus Orientation/consciousness: patient oriented x3 HEENT Head: Yes normal to inspection, Yes normocephalic and Yes atraumatic General nose exam: Normal external nose present, Normal nasal mucous membranes and turbinates present and No nasal discharge present Face and sinus: Yes normal facial exam Mouth: Normal oral and palatal mucosa present Throat: Yes posterior oropharynx normal Eyes General: appearance normal, both eyes and all related structures Neck Neck: Yes normal visual inspection and Yes no lymphadenopathy Resp Effort & Inspection: normal respiratory effort, able to speak in complete sentences, no tracheal deviation and symmetric chest movement Cardio Jugular venous distension: no JVD Rate: regular rate Rhythm: regular rhythm Heart sounds: S1 normal heart sound present, S2 normal heart sound present, no gallops and no murmurs GI Inspection: Yes normal to inspection and No distended Palpation (GI): Soft to palpation, not firm, nontender and No hepatosplenomegaly present Auscultation: normoactive bowel sounds Neuro General: patient oriented x3 Gait exam (Neuro): Normal gait present Psych Appearance: grossly normal Mental Status: mental status grossly normal Speech and movement: Normal speech and movement present Affect: normal affect Attitude: cooperative Thought process: Normal thought process present Thought content: Normal thought content present Insight: Good insight present (Psych) Judgement: Good judgement present (Psych) Assessment & Plan Assessment & Plan (1) Dysphagia: Code(s): R13.10 - Dysphagia, unspecified Category: Medical Qualifiers: Dysphagia type: esophageal phase Qualified Code(s): R13.19 - Other dysphagia Plan: The patient's symptoms of dysphagia, choking, and chronic cough are likely multifactorial, with potential contributions from a cricopharyngeal bar, GERD, COPD, and possible allergies/postnasal drip. - Plan is to proceed with an upper endoscopy (EGD) to further evaluate the esophagus, stomach, and duodenum, and to visualize the cricopharyngeal bar noted on the barium swallow. - A balloon dilation may be performed during the EGD to address the cricopharyngeal bar. - For possible postnasal drip contributing to the cough, a trial of fluticasone (Flonase) nasal spray was recommended for 2-4 weeks. - If symptoms persist after the EGD and dilation, the patient is advised to follow up with her spin table operator and/or an ENT specialist for further evaluation of her cough. (2) GERD (gastroesophageal reflux disease): Code(s): K21.9 - Gastro-esophageal reflux disease without esophagitis Category: Medical Qualifiers: Esophagitis presence: esophagitis presence not specified Qualified Code(s): K21.9 - Gastro-esophageal reflux disease without esophagitis Plan: The patient is currently on the maximum dose of pantoprazole with continued symptoms. - Plan to add famotidine (Pepcid) 40 mg at bedtime to augment acid suppression. - The potential interaction between famotidine and her tizanidine was discussed; famotidine may increase the effects of tizanidine, causing increased drowsiness or lower blood pressure. The patient understood the risks and agreed to monitor for side effects such as fatigue, dizziness, or lightheadedness. (3) Colon cancer screening: Code(s): Z12.11 - Encounter for screening for malignant neoplasm of colon Category: Medical Plan: The patient is overdue for a screening colonoscopy, with her last one having been in 2010. - A screening colonoscopy will be scheduled to be performed at the same time as the upper endoscopy. Medications: -prescriptions for laxative tablets and Miralax sent to pharmacy; instructions for Gatorade purchase and clear liquid diet given Patient educated on scheduling process, procedure preparation, including avoiding certain foods and ensuring clear liquid intake Advised on necessity for ride post-procedure due to sedation. Plan Follow-up after endoscopy or sooner as needed Time: I spent a total of 45 minutes on the date of encounter which includes: Preparing to see the patient (reviewed previous documentation, test results and medical history) Performing a medically appropriate exam and/or evaluation Ordering medications, tests, and procedures Documenting clinical information in the health record impression surrounding Orders: Referrals GI Procedure Notification R05.3 - Chronic cough, R13.10 - Dysphagia, unspecified, Z12.11 - Encounter for screening for malignant neoplasm of colon Medications: New polyethylene glycol 3350 (Miralax) per colonoscopy prep instructions 238 grams PO ONCE 238 grams 0RF famotidine Take one tablet at bedtime. 40 mg PO BEDTIME 180 tabs 0RF bisacodyl take four tablets once day of colonoscopy prep 20 mg (4 x 5 mg) PO ONCE 4 tabs 0RF Coding Level of Care Code New Pt New Pt Level 4 (29122) Patient Type New Diagnoses Esophageal dysphagia R13.19 Dysphagia type: esophageal phase Gastroesophageal reflux disease, unspecified whether esophagitis present K21.9 Esophagitis presence: esophagitis presence not specified Colon cancer screening Z12.11
[2025-07-14 09:44] VITALS: BP 136/78; PULSE 74; O2SAT 99; BMI 25.3
--- OUTSIDE RECORDS SUMMARY | 2025-07-14 10:56 | XMS_ITS | Clinical Summary ---
Author Organization [facility] Address [address] [facility] [place] [address] Phone Care Team Providers Care Wafer Mounter Name Role Phone Bryanna Blanco MD Primary Care Provider [phone] Allergies Active Allergy Reactions Criticality Noted Date [...] Replace Required Details, Route to Pharmacy Electronically, [facility]/pharmacy #[id number], 165, cm, 09/21/24 11:45:00 EST, Height, [...] exertion 01/18/2025 01/19/20 Epidermoid cyst 01/18/2025 01/18/2025 Immunizations Immunization Administration Dates Next Due Influenza [...] patient's age to complete this topic Insurance [facility] Care Teams Wafer Mounter Relationship Specialty Start Date End Date Bryanna Blanco MD [address] [place] [address] [place] PCP - General Family Medicine 01/19/25
--- OUTSIDE RECORDS SUMMARY | 2025-07-14 10:56 | XMS_ITS | Clinical Summary ---
Author Organization [facility] Address [address] [place] [address] Phone Care Team Providers Care Geophysical Operator Name Role Phone Pablito Krause MD Primary Care Provider [phone] Encounters Date Type Department Care Team Description 05/31/[address] [facility] [address] [place] [address] Bryanna Blanco MD 05/26/2025 1:21 PM EDT - 05/26/2025 11:59 PM EDT Hospital Encounter [facility], X-Ray - [address] [address] Bryanna Blanco MD Discharge Disposition: Home or Self Care 05/17/2025 Transcribe Orders Virtual Department [address] [place] [address] Bryanna Blanco MD Dysphagia, unspecified type (Primary Dx) from Last 3 Months Social History Tobacco Use Types Packs/Day Years Used Date Smoking Tobacco: Never Assessed Education Answer Date Recorded Are you interested in more education? Not on kelsey e 11/22/2022 Are you concerned about learning? Not on file 11/22/2022 No 11/22/2022 No 11/22/2022 Digital Access Answer Date Recorded No 12/21/2022 No 12/21/2022 No 12/21/2022 Reliable internet access at home? Not on file 12/21/2022 Device with a working camera? Not on file Comments Unknown Sex and Gender Information Value Date Recorded Sex Assigned at Not on file Legal Sex Female 6:32 PM EDT Gender Identity Not on file Sexual Orientation Not on file Plan of Treatment Health Maintenance Due Date Last Done Comments LIPID PANEL 1961 DEPRESSION SCREENING 1973 SMOKING Hx and SMOKELESS TOBACCO SCREENING 1974 HEPATITIS C SCREENING 1979 HIV ONE-TIME SCREENING (18-65 YEARS) 1979 PAP SMEAR 1982 MAMMOGRAM 2001 COLOGUARD 2006 COLONOSCOPY 2006 COLORECTAL CANCER SCREENING 2006 FIT TEST 2006 FOBT 2006 SIGMOIDOSCOPY 2006 VIRTUAL COLONOSCOPY 2006 PNEUMOCOCCAL VACCINES (50+ years) (1 of 1 - PCV) 2011 INFLUENZA VACCINE (#1) 2025 , 04/18/2020, 03/16/2019, Additional history exists COVID-19 VACCINE ( - season) 2025 08/31/2020, 08/03/2020 Adult Td,Tdap Booster 03/04/2027 03/04/2017, 013 RSV VACCINE (1 - 1-dose 75+ series) 2036 ZOSTER VACCINES Completed 07/18/2020, 04/21/2019 HEPATITIS A VACCINES Aged Out No long er eligible based on patient's age to complete this topic HIB VACCINES Aged Out No longer eligi ble based on patient's age to complete this topic MENINGOCOCCAL VACCINES (ACWY) Aged Out No longer eligible based on patient's age to complete this topic MENINGOCOCCAL VACCINES (B) Aged Out N o longer eligible based on patient's age to complete this topic Medical Devices Not on file Procedures Procedure Name Priority Date/Time Associated Diagnosis Comments FL BARIUM SWALLOW ESOPHAGRAM DOUBLE CONTRAST Routine 05/26/2025 2:10 PM EDT Dysphagia, unspecified type from Last 3 Months Results * FL BARIUM SWALLOW ESOPHAGRAM DOUBLE CONTRAST (05/26/2025 2:10 PM EDT) Anatomical Region Laterality Modality Chest Radio Fluoroscop y 05/26/2025 2:30 PM EDT Impressions 05/26/2025 3:00 PM EDT Prominent cricopharyngeal bar. Mild esophageal dysmotility. FLUOROSCOPY TIME: 1 minute 24 seconds NUMBER OF IMAGES: 298 The examination was performed by Nigel MARX. Dr. Lindsey Aguilar was immediately available for portions of the procedure as needed. ATTESTATION: Lindsey Schwarz as teaching physician, have reviewed the images for this case and if necessary edited the report originally created by Nigel Donaldson. Narrative 05/26/2025 3:00 PM EDT FL BARIUM SWALLOW ESOPHAGRAM DOUBLE CONTRAST HISTORY: Dysphagia. Chronic Cough. COMPARISON: None. TECHNIQUE: Double contrast barium swallow examination was performed with Sodium Carbonate and Barium. FINDINGS: SWALLOW: No aspiration. ESOPHAGUS: Motility: Mild esophageal dysmotility. Mucosa: Prominent cricopharyngeal bar without evidence of achalasia. No discrete mass, ulceration or fixed stricture demonstrated fluoroscopically. Distensibility: Normal. GASTROESOPHAGEAL JUNCTION: No definite evidence of a hiatal hernia. GASTROESOPHAGEAL REFLUX: None observed. TABLET: A 13 mm barium tablet passed into the stomach without significant holdup. Procedure Note Lindsey Aguilar MD - 05/26/2025 FL BARIUM SWALLOW ESOPHAGRAM DOUBLE CONTRAST HISTORY: Dysphagia. Chronic Cough. COMPARISON: None. TECHNIQUE: Double contrast barium swallow examination was performed withSodium Carbonate and Barium. FINDINGS: SWALLOW: No aspiration. ESOPHAGUS: Motility: Mild esophageal dysmotility. Mucosa: Prominent cricopharyngeal bar without evidence of achalasia. Nodiscrete mass, ulceration or fixed stricture demonstratedfluoroscopically. Distensibility: Normal. GASTROESOPHAGEAL JUNCTION: No definite evidence of a hiatal hernia. GASTROESOPHAGEAL REFLUX: None observed. TABLET: A 13 mm barium tablet passed into the stomach without significantholdup. IMPRESSION: Prominent cricopharyngeal bar. Mild esophageal dysmotility. FLUOROSCOPY TIME: 1 minute 24 seconds NUMBER OF IMAGES: 298 The examination was performed by Nigel MARX. Dr. Lindsey Aguilar wasimmediately available for portions of the procedure as needed. ATTESTATION: Lindsey Schwarz as teaching physician, have reviewed theimages for this case and if necessary edited the report originally createdby Nigel Donaldson. us Bryanna Blanco MD IMG FL MISC Final Result from Last [address] [place], [place] [address] [place] [place] [address] [place] [place] [address] [place], [place] [address] [place], [place] [address] Care Teams Geophysical Operator Relationship Specialty Start Date End Date Pablito Krause MD [address] [place] [address] PCP - General 05/13/17 Additional Source Comments The information contained in this document represents components of the legal health record. It is not the complete legal health record.[facility]
--- OUTSIDE RECORDS SUMMARY | 2025-07-14 10:56 | XMS_ITS | Encounter Summary ---
Author Organization [facility] Address [address] [place] [address] Phone Care Team Providers Care Weaver Hand Name Role Phone Pablito Krause MD Primary Care Provider [phone]- [phone] Encounter Details Date Type Department Care Team (Late st Contact Info) Description 05/17/2025 Transcribe Orders Virtual Department [address] [place] [address] Bryanna Blanco MD [address] [place] [address] Dysphagia, unspecified type (Primary Dx) Social History Tobacco Use Types Packs/Day Years [...] on file Sexual Orientation Not on file documented as of this encounter Plan of Treatment Not on file documented as of this encounter Results * FL BARIUM SWALLOW ESOPHAGRAM DOUBLE [...] edited the report originally createdby Nigel Donaldson. Bryanna Blanco MD [facility] Final Result documented in this encounter Visit Diagnoses Diagnosis Dysphagia, unspecified type- Primary Dysphagia, unspecified type documented in this encounter Care Teams Weaver Hand Relationship Specialty Start Date End Date Pablito Krause MD [address] [place] [address] PCP - General 05/13/17 documented as of this encounter Additional Source Comments The information contained in this document represents components of the legal health record. It is not the complete legal health record.[facility]
== END 2025-07-14 10:33 | disposition home or self-care (01) ==
LOC: HO.HGI 09:31
PROVIDERS: PCP Family Medicine; Visit Provider Nurse Practitioner Family
DX: Z01.818 Encounter for other preprocedural examination (principal); Z12.11 Encounter for screening for malignant neoplasm of colon; R13.19 Other dysphagia; K21.9 Gastro-esophageal reflux disease without esophagitis
CPT/HCPCS: 99204

== ENCOUNTER 2025-07-22 09:02 | Outpatient (REF) | payer OTHER, SELFPAY ==
[2025-07-22 11:03] LABS: Resp Syncy Virus RNA Qual PCR NEGATIVE (Negative); SARS COV2 PCR INHOUSE NEGATIVE (Negative)
== END 2025-07-22 09:03 | disposition home or self-care (01) ==
LOC: HO.LAB 09:02
PROVIDERS: PCP Family Medicine; Visit Provider Physician Assistant
DX: J06.9 Acute upper respiratory infection, unspecified (principal); B34.9 Viral infection, unspecified; R09.89 Other specified symptoms and signs involving the circulatory and respiratory systems
CPT/HCPCS: 87637

== ENCOUNTER 2025-07-22 09:02 | Outpatient (AMB) | payer OTHER, SELFPAY ==
--- OUTSIDE RECORDS SUMMARY | 2025-07-22 09:04 | XMS_ITS | Clinical Summary ---
Author Organization [facility] Address [address] [facility] [address] [place] [address] Phone Care Team Providers Care Dry Cleaner Apprentice Name Role Phone Bryanna Blanco MD Primary Care Provider [phone] Allergies Active Allergy Reactions Criticality Noted Date [...] Replace Required Details, Route to Pharmacy Electronically, [facility]/pharmacy #[id number], 165, cm, 09/21/24 11:45:00 EST, [...] patient's age to complete this topic Insurance [facility] Care Teams Dry Cleaner Apprentice Relationship Specialty Start Date End Date Bryanna Blanco MD [address] [place] [address] [place] PCP - General Family Medicine 01/19/25
--- OUTSIDE RECORDS SUMMARY | 2025-07-22 09:04 | XMS_ITS | Clinical Summary ---
Author Organization [facility] Address [address] [place] [address] Phone Care Team Providers Care Boiler Tender Name Role Phone Pablito Krause MD Primary Care Provider [phone]- [phone] Encounters Date Type Department Care Team Description 05/31/2025 Transcribe Orders [facility] [address] [place] [address] Bryanna Blanco MD 05/26/2025 1:21 PM EDT - 05/26/2025 11:59 PM EDT Hospital Encounter [facility], X-Ray - [address] [address] Bryanna Blanco MD Discharge Disposition: Home or Self Care 05/17/2025 Transcribe Orders Virtual Department [address] [place] [address] Bryanna Blanco MD Dysphagia, unspecified type (Primary [...] Final Result from Last [address] [place], [place] [id number] [place], [place] [address] [place] [address] [place] [address] [place], [place] [address] Care Teams Boiler Tender Relationship Specialty Start Date End Date Pablito Krause MD [address] [place] [address] PCP - General 05/13/17 Additional Source Comments The information contained in this document represents components of the legal health record. It is not the complete legal health record.[facility]
--- OUTSIDE RECORDS SUMMARY | 2025-07-22 09:04 | XMS_ITS | Encounter Summary ---
Author Organization [facility] Address [address] [place] [address] Phone Care Team Providers Care Level Vial Marker Name Role Phone Pablito Krause MD Primary Care Provider [phone]- [phone] Encounter Details Date Type Department Care Team (Late st Contact Info) Description 05/17/2025 Transcribe Orders Virtual Department [address] [place] [address] Bryanna Blanco MD [address] [place] [address] Dysphagia, unspecified type (Primary Dx) Social History [...] originally createdby Nigel Donaldson. Bryanna Blanco MD [facility] Final Result documented in this encounter Visit Diagnoses Diagnosis Dysphagia, unspecified type- Primary Dysphagia, unspecified type documented in this encounter Care Teams Level Vial Marker Relationship Specialty Start Date End Date Pablito Krause MD [address] [place] [address] PCP - General 05/13/17 documented as of this encounter Additional Source Comments The information contained in this document represents components of the legal health record. It is not the complete legal health record.[facility]
[2025-07-22 09:09] VITALS: BP 138/90; PULSE 104; TEMP 37.1; O2SAT 98; BMI 25.0
--- NOTE | 2025-07-22 09:09 | AM.OFFWIN_ITS ---
Intake Vital Signs 07/22/25 09:09 Height 5 ft 5 in Weight 150 lb BMI 25.0 BP 138/90 H Blood Pressure Location Lt brachial Position Sitting Pulse 104 H Pulse Source Pulse Oximeter Temp 98.8 F Temp Source Oral Pulse Oximetry (%) 98 Oxygen Delivery Method Room Air Intake Visit Reasons: DINING ROOM HOSTESS-cough, fever, chest pain when cough Intake Note: Patient presents c/o cough, chest congestion, fever x3 days. Patient Tobacco Use Status: Never used Tobacco Allergies cefaclor (From CECLOR) Allergy (Intermediate, Verified 07/22/25 09:12) NAUSEA & VOMITING Sulfa (Sulfonamide Antibiotics) (SULFA (SULFONAMIDE ANTIBIOTICS)) Allergy (Intermediate, Verified 07/22/25 09:12) RASH HPI HPI Comments History of Present Illness Details History - The patient is a 65 year old female pr esenting with a cough. - Her current illness began three days a go with a hacking cough, which is different from her usual chronic cough. - The cough causes chest pain and episod es of shortness of breath during coughing fits. - She has also experienced fevers and dr enching night sweats for the past three nights. - The patient reports taking NyQuil to h elp with sleep. - She denies any associated sinus pain, ear pain, nausea, or vomiting. Able to eat and drink okay. - The patient and her have been sick on and off since . - She was seen at an urgent care [facility] where tests for influenza and COVID-19 were negative. - She has a history of COPD but denies a ny current trouble with her breathing. - Her immunizations are up to date, incl uding a flu shot. - She reports being under significant st ress due to family issues. Review of Systems - Constitutional: Reports subjective fev ers and drenching night sweats. - Respiratory: Reports a hacking cough a nd chest pain with cough. - Reports shortness of breath only when having a coughing fit. - ENT: Denies sinus pain or ear pain. - Gastrointestinal: Denies nausea and vo miting. - Psychiatric: Reports feeling unusually stressed. All systems reviewed and are unremarkable except as noted in HPI Physical Exam General: Cooperative, healthy appearing, comfortable and no acute distress Orientation/consciousness: Patient oriented x3 Limitations: No limitations Head: Normal to inspection Ears: Hearing grossly normal bilaterally, external ears normal, EAC's normal bilaterally and TM's normal bilaterally Nose: Normal external nose present, Normal nares present and No nasal discharge present Face and sinus: Normal facial exam and sinuses nontender Mouth: Normal oral and palatal mucosa present and moist mucous membranes Throat: Tonsils normal, no exudates, uvula midline, posterior oropharynx erythema Eyes: Appearance normal, both eyes and all related structures Neck: Normal visual inspection, full ROM Respiratory: Clear to auscultation bilaterally. Normal respiratory effort, able to speak in complete sentences, actively coughing, no respiratory distress, not tachypneic, no tripod positioning and no use of accessory muscles Cardiovascular: tachycardic rate and regular rhythm. Normal S1 and S2 Skin: No rashes or lesions noted Neuro: Patient oriented x3 Extremities: Normal to inspection and Yes no clubbing, cyanosis or edema PFSH Medical History (Updated 07/22/25 @ 09:30 by Radha King PA-C) Colon cancer screening Chronic cough Dysphagia HTN (hypertension) Hypoxia COVID-19 vaccine administered Hx of renal calculi Hx of bipolar disorder Depression Arthritis GERD (gastroesophageal reflux disease) Asthma TMJ click Surgical History Hx of esophagogastroduodenoscopy H/O colonoscopy Hx of lithotripsy History of carpal tunnel release Hx of cholecystectomy Family History (Updated 07/14/25 @ 10:08 by Maylin Irwin CNP) Father Parkinson disease Diabetes Dementia Social History Household Members: Spouse Housing: House Do you presently have visiting nurse or other home services: No Patient Tobacco Use Status: Never used Tobacco service: Yes Current occupational status: employed 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 - VSS beyond very slightly tachyardic likey 2/2 dehydration, pt well appearing and PE unremarkable. - The patient's presentation with a 3-day history of hacking cough, chest pain with cough, and night sweats is consistent with an acute viral respiratory infection. - Nasal swabs for influenza, COVID-19, and RSV will be performed for diagnosis. - The option of starting antiviral medication, such as Tamiflu or Paxlovid, was discussed if test results are positive, noting the potential to shorten symptom duration by about a day. - The patient is currently hesitant to take antivirals due to potential side effects but will makes a decision after the test results are available. - A prescription for Tessalon Perles (benzonatate) will be sent to the [facility] on [address] to be used at night for cough suppression to aid sleep. - The patient was advised to use Tylenol for fevers and was counseled on monitoring total daily acetaminophen intake due to its presence in other [id number] medications like NyQuil. - Patient given a doctor's note for absence from work. - The patient's tachycardia (heart rate of 104 bpm) is likely secondary to dehydration from fevers and night sweats. - The patient was educated on the importance of increasing fluid intake to improve hydration status and lower her heart rate. - The patient reports significant life stress, which may be impacting her immune system and contributing to recurrent illnesses. - Recommended exploring stress management techniques, such as meditation or using guided meditation apps, to help manage stress levels. - Discussed immune support supplements containing elderberry, vitamin C, vitamin D, and zinc as a potential option to consider, given her pattern of recurrent sickness. - The patient has a known history of COPD. Currently, her COPD appears stable as she denies trouble breathing, and her lungs are clear on exam with good oxygenation. - The patient was provided with strict return precautions to go to an emergency room for worsening shortness of breath or a fever that does not respond to Tylenol. Was given a pamphlet with detailed instructions on managing flu as well as when to go to the ED. Orders: Orders SARS-CoV2/FLU/RSV Today J06.9 - Acute upper respiratory infection, unspecified, R09.89 - Other specified symptoms and signs involving the circulatory and respiratory systems Medications: New benzonatate DO NOT ALLOW CHILDREN TO HAVE ACCESS TO THIS MEDICATION IT IS DANGEROUS FOR CHILDREN. 200 mg PO BEDTIME PRN 10 caps 0RF cough Coding Level of Care Code New Pt Level 3 (82408) Diagnoses Acute viral syndrome B34.9
== END 2025-07-22 09:34 | disposition home or self-care (01) ==
PROVIDERS: PCP Family Medicine; Visit Provider Physician Assistant
DX: B34.9 Viral infection, unspecified (principal)